=== PATIENT | male | born 1980 | race Caucasian/White ===

== ENCOUNTER 2018-02-03 16:35 | Emergency (ER) | payer SELFPAY ==
[2018-02-03 17:41] LABS: BACTERIA, URINE RARE /hpf; BILIRUBIN, URINE NEG (NEG); BLOOD, URINE LARGE (NEG); CALCIUM OXALATE CRYSTALS,URINE FEW /hpf; COMMENT (UR) CULT NOT INDICATED; CULTURE IF INDICATED CULT NOT INDICATED; GLUCOSE,URINE NEG (NEG); KETONE, URINE NEG (NEG); MUCUS URINE MANY /lpf (OCC); NITRITE,URINE NEG (NEG); PH, URINE 5.5 (5.0-8.5); URINE COLOR YELLOW (YELLW/STRAW); URINE LEUKOCYTE ESTERASE TRACE (NEG)
[2018-02-03] MEDS ORDERED: SODIUM CHLORIDE 0.9% FLUSH 10 ML FLUSH IVF (18:45)
[2018-02-03] MEDS: ONDANSETRON HCL 4 MG/2 ML VIAL IV PUSH (19:04)
[2018-02-03] MEDS: SODIUM CHLOR 0.9% 1000 ML INJ 1,000 ML IV (19:04)
[2018-02-03] MEDS: MORPHINE SULFATE 4 MG/ML INJ IV PUSH (19:05)
[2018-02-03] MEDS: KETOROLAC TROMETHAMINE 30 MG/ML (IVP) VIAL IV PUSH (19:06)
[2018-02-03 19:35] LABS: AUTOMATED NEUTROPHIL # 8.8 TH/MM3 (1.8-7.7); BASOPHIL % 0.2 % (0.0-2.0); EOSINOPHIL # 0.3 TH/MM3 (0-0.4); EOSINOPHIL % 2.1 % (0.0-4.0); HEMATOCRIT 46.9 % (39.0-51.0); HEMO FLAGS DIFF FINAL; HEMOGLOBIN 16.2 GM/DL (13.0-17.0); LYMPH % 17.5 % (9.0-44.0); LYMPHOCYTE # 2.1 TH/MM3 (1.0-4.8); MEAN CELL VOLUME 88.2 FL (80.0-100.0); MEAN CORPUSCULAR HEMOGLOBIN 30.5 PG (27.0-34.0); MEAN CORPUSCULAR HGB CONC 34.6 % (32.0-36.0); MEAN PLATELET VOLUME 8.1 FL (7.0-11.0); MONOCYTE # 0.7 TH/MM3 (0-0.9); NEUT % 74.2 % (16.0-70.0); PLATELET COUNT 305 TH/MM3 (150-450); RED BLOOD COUNT 5.31 MIL/MM3 (4.50-5.90); RED CELL DISTRIBUTION WIDTH 12.2 % (11.6-17.2); WHITE BLOOD COUNT 11.9 TH/MM3 (4.0-11.0)
[2018-02-03 19:46] LABS: ANION GAP 8 MEQ/L (5-15); BICARBONATE 24.9 MEQ/L (21.0-32.0); BLOOD UREA NITROGEN 8 MG/DL (7-18); CALCIUM 9.4 MG/DL (8.5-10.1); CHLORIDE 102 MEQ/L (98-107); CREATININE 0.95 MG/DL (0.60-1.30); GLOMERULAR FILTRATION RATE 89 ML/MIN (>89); GLUCOSE,RANDOM 82 MG/DL (74-106); POTASSIUM 3.9 MEQ/L (3.5-5.1); SODIUM (NA) 135 MEQ/L (136-145)
== END 2018-02-03 20:25 | disposition home or self-care (01) ==
LOC: NEPD 16:35
DX: N13.2 Hydronephrosis with renal and ureteral calculous obstruction (principal)
CPT/HCPCS: 74176; 80048; 81001; 85025; 96374; 96375; 99284-25

== ENCOUNTER 2018-02-04 08:53 | Observation (INO) | payer SELFPAY ==
[~2018-02-04 08:53] MED LIST: AMLO5TAB2 PO; HYDR-3580 PO; LEXA10TA PO; LISI20TA PO; META1TAB17 PO; ZOFR4TAB3 SL
[2018-02-04 08:55] VITALS: BP 184/98; PULSE 89; RESP 20; TEMP 98.2; O2SAT 98
[2018-02-04] MEDS ORDERED: SODIUM CHLOR 0.9% 1000 ML INJ 1,000 ML IV SCH (09:18)
[2018-02-04 09:23] VITALS: O2SAT 99
--- NOTE | 2018-02-04 09:26 | PD ---
HPI Chief Complaint: Complaint Time Seen by Provider: 09:08 Travel History International Travel<30 days: No Contact w/Intl Traveler<30days: No Traveled to known affect area: No History of Present Illness HPI Patient is a 37-year-old male with history of hypertension who returns the emergency room for evaluation of intractable right-sided flank pain with nausea and vomiting. Patient reports that he was seen yesterday in the emergency room for right-sided flank pain. Patient reports that he was told that he had a 5 mm stone in the right distal ureter with mild hydronephrosis and hydroureter with perinephric stranding. Patient reports that he was sent home with a prescription for hydrocodone, reports that after he was discharged home, he began to feel nauseous and had multiple episodes of vomiting. Patient reports that he is unable to keep any fluids or any food or medications at this time, he is unable to take his medications for pain. Patient reports that he was told to return to the emergency room if symptoms persisted. Patient reports that he has severe pain to his right flank, reports that he has history of kidney stones in the past, reports that at baseline, he normally passes the stones by himself. Patient reports that he has passed up to a 6.5 mm kidney stone without urologic intervention. Reports that he does make calcium oxalate stones, he last saw a urologist about 45 years ago. Patient reports that he has not had a kidney stone for the past 4-5 years as he has been diet controlled. Patient denies any fevers or chills at this time. PFSH Past Medical History Anxiety: Yes Depression: Yes Hypertension: Yes Kidney Stones: Yes Tetanus Vaccination: < 5 Years Past Surgical History Tonsillectomy: Yes (AND ADENOIDS) Other Surgery: Yes (VASECTOMY) Social History Alcohol Use: No Tobacco Use: No Substance Use: No Allergies-Medications (Allergen,Severity, Reaction): Coded Allergies: No Known Allergies (Verified Adverse Reaction, Unknown, 02/03/18) Reported Meds & Prescriptions Reported Meds & Active Scripts Active Zofran Odt (Ondansetron Odt) 4 Mg Tab 4 Mg SL Q6HR PRN Hydrocodone-Acetaminophen 7.5 Mg-325 Mg Tab 1 Tab PO Q6H PRN Reported Lexapro (Escitalopram Oxalate) 10 Mg Tab 10 Mg PO DAILY Metaxalone 400 Mg Tab 100 Mg PO TID Lisinopril-Hctz 20-12.5 Mg Tab 1 Tab PO DAILY Amlodipine (Amlodipine Besylate) 5 Mg Tab 5 Mg PO DAILY Review of Systems General / Constitutional: No: Fever Eyes: No: Visual changes HENT: No: Headaches Cardiovascular: No: Chest Pain or Discomfort Respiratory: No: Shortness of Breath Gastrointestinal: Positive: Nausea, Vomiting, Abdominal Pain Genitourinary: Positive: Urgency, Frequency, Hematuria, Flank Pain, No: Dysuria Musculoskeletal: No: Pain Skin: No Rash Neurologic: No: Weakness Psychiatric: No: Depression Endocrine: No: Polydipsia Hematologic/Lymphatic: No: Easy Bruising Physical Exam Narrative GENERAL: Moderate distress SKIN: Focused skin assessment warm/dry. HEAD: Atraumatic. Normocephalic. EYES: Pupils equal and round. No scleral icterus. No injection or drainage. ENT: No nasal bleeding or discharge. Mucous membranes pink and moist. NECK: Trachea midline. No JVD. CARDIOVASCULAR: Regular rate and rhythm. No murmur appreciated. RESPIRATORY: No accessory muscle use. Clear to auscultation. Breath sounds equal bilaterally. GASTROINTESTINAL: Abdomen soft, non-tender, nondistended. Hepatic and splenic margins not palpable. MUSCULOSKELETAL: No obvious deformities. No clubbing. No cyanosis. No edema. Patient with right-sided flank pain NEUROLOGICAL: Awake and alert. No obvious cranial nerve deficits. Motor grossly within normal limits. Normal speech. PSYCHIATRIC: Appropriate mood and affect; insight and judgment normal. Data Data Last Documented VS Vital Signs Date Time Temp Pulse Resp B/P (MAP) Pulse Ox O2 Delivery O2 Flow Rate FiO2 02/04/18 11:00 18 02/04/18 09:23 99 02/04/18 08:55 98.2 89 184/98 (126) Orders Orders Complete Blood Count With Diff (02/04/18 09:18) Comprehensive Metabolic Panel (02/04/18 09:18) Urinalysis - C+S If Indicated (02/04/18 09:18) Iv Access Insert/Monitor (02/04/18 09:18) Ecg Monitoring (02/04/18 09:18) Oximetry (02/04/18 09:18) Morphine Inj (Morphine Inj) (02/04/18 09:30) Ondansetron Inj (Zofran Inj) (02/04/18 09:30) Sodium Chlor 0.9% 1000 Ml Inj (Ns 1000 M (02/04/18 09:18) Sodium Chloride 0.9% Flush (Ns Flush) (02/04/18 09:30) Strain Urine PRN (02/04/18 11:07) Ketorolac Inj (Toradol Inj) (02/04/18 11:15) Admit Order (Ed Use Only) (02/04/18 11:17) Labs Laboratory Tests Test 02/04/18 09:30 White Blood Count 8.5 TH/MM3 Red Blood Count 5.19 MIL/MM3 Hemoglobin 16.2 GM/DL Hematocrit 45.9 % Mean Corpuscular Volume 88.4 FL Mean Corpuscular Hemoglobin 31.2 PG Mean Corpuscular Hemoglobin Concent 35.3 % Red Cell Distribution Width 12.4 % Platelet Count 287 TH/MM3 Mean Platelet Volume 8.1 FL Neutrophils (%) (Auto) 63.7 % Lymphocytes (%) (Auto) 25.5 % Monocytes (%) (Auto) 6.3 % Eosinophils (%) (Auto) 4.2 % Basophils (%) (Auto) 0.3 % Neutrophils # (Auto) 5.4 TH/MM3 Lymphocytes # (Auto) 2.2 TH/MM3 Monocytes # (Auto) 0.5 TH/MM3 Eosinophils # (Auto) 0.4 TH/MM3 Basophils # (Auto) 0.0 TH/MM3 CBC Comment DIFF FINAL Differential Comment Blood Urea Nitrogen 11 MG/DL Creatinine 1.32 MG/DL Random Glucose 117 MG/DL Total Protein 7.8 GM/DL Albumin 4.2 GM/DL Calcium Level 9.2 MG/DL Alkaline Phosphatase 85 U/L Aspartate Amino Transf (AST/SGOT) 44 U/L Alanine Aminotransferase (ALT/SGPT) 134 U/L Total Bilirubin 0.4 MG/DL Sodium Level 138 MEQ/L Potassium Level 4.0 MEQ/L Chloride Level 103 MEQ/L Carbon Dioxide Level 25.2 MEQ/L Anion Gap 10 MEQ/L Estimat Glomerular Filtration Rate 61 ML/MIN MDM Medical Decision Making Medical Screen Exam Complete: Yes Emergency Medical Condition: Yes Medical Record Reviewed: Yes Interpretation(s) Vital Signs Date Time Temp Pulse Resp B/P (MAP) Pulse Ox O2 Delivery O2 Flow Rate FiO2 02/04/18 08:55 98.2 89 20 184/98 (126) 98 Differential Diagnosis Kidney stone, hydronephrosis, renal failure, UTI Narrative Course During the course of the patients emergency department visit, the patients history, examination, and differential diagnosis were reviewed with the patient. The patient was placed on a metal neutralizer with oximetry and frequent blood pressure monitoring. The patient had an IV access obtained and blood work sent for analysis. The patient was initially provided IV fluids, IV Zofran as well as IV morphine for pain The patients laboratory studies were reviewed and remarkable for CBC & BMP Diagram 02/04/18 09:30 Total Protein 7.8, Albumin 4.2, Calcium Level 9.2, Alkaline Phosphatase 85, Aspartate Amino Transf (AST/SGOT) 44 H, Alanine Aminotransferase (ALT/SGPT) 134 H, Total Bilirubin 0.4 Patient's creatinine 1.32 which is elevated from last visit, during last visit, BUN creatinine was 8/0.[address] the abdomen pelvis from yesterday showed a 5 mm stone in the distal right ureter with mild hydronephrosis and hydroureter and to the right perinephric stranding. Patient presents the emergency room for pain relief and hydration and admission to the hospital. Patient unable to tolerate anything p.o., patient will require admission to the hospital at this time for IV hydration as well as for pain relief. Patient reevaluated, patient is not feeling any better. IV Toradol ordered. Given his elevated creatinine at this time, intractable pain, intractable nausea and vomiting, patient will require admission to the hospital. Patient will be admitted to the hospital under Dr. Mccord service as case is reviewed with FP resident. Diagnosis Primary Impression: Kidney stone on right side Additional Impression: Hydroureter on right Admitting Information Admitting Physician Requests: Argenis Malone DO February 04, 2018 09:26
[2018-02-04] MEDS ORDERED: MORPHINE SULFATE 4 MG/ML INJ IV PUSH ONE (09:30)
[2018-02-04] MEDS ORDERED: SODIUM CHLORIDE 0.9% FLUSH 10 ML FLUSH IV FLUSH PRN ×2 (09:30→12:00)
[2018-02-04] MEDS ORDERED: ONDANSETRON HCL 4 MG/2 ML VIAL IVP ONE (09:30)
[2018-02-04 09:47] LABS: AUTOMATED NEUTROPHIL # 5.4 TH/MM3 (1.8-7.7); BASOPHIL % 0.3 % (0.0-2.0); EOSINOPHIL # 0.4 TH/MM3 (0-0.4); EOSINOPHIL % 4.2 % (0.0-4.0); HEMATOCRIT 45.9 % (39.0-51.0); HEMOGLOBIN 16.2 GM/DL (13.0-17.0); LYMPH % 25.5 % (9.0-44.0); LYMPHOCYTE # 2.2 TH/MM3 (1.0-4.8); MEAN CELL VOLUME 88.4 FL (80.0-100.0); MEAN CORPUSCULAR HEMOGLOBIN 31.2 PG (27.0-34.0); MEAN CORPUSCULAR HGB CONC 35.3 % (32.0-36.0); MEAN PLATELET VOLUME 8.1 FL (7.0-11.0); MONO % 6.3 % (0.0-8.0); MONOCYTE # 0.5 TH/MM3 (0-0.9); NEUT % 63.7 % (16.0-70.0); PLATELET COUNT 287 TH/MM3 (150-450); RED BLOOD COUNT 5.19 MIL/MM3 (4.50-5.90); RED CELL DISTRIBUTION WIDTH 12.4 % (11.6-17.2); WHITE BLOOD COUNT 8.5 TH/MM3 (4.0-11.0)
[2018-02-04 09:58] LABS: ALBUMIN 4.2 GM/DL (3.4-5.0); AST (GOT) 44 U/L (15-37); BICARBONATE 25.2 MEQ/L (21.0-32.0); BLOOD UREA NITROGEN 11 MG/DL (7-18); CALCIUM 9.2 MG/DL (8.5-10.1); CHLORIDE 103 MEQ/L (98-107); CREATININE 1.32 MG/DL (0.60-1.30); GLOMERULAR FILTRATION RATE 61 ML/MIN (>89); GLUCOSE,RANDOM 117 MG/DL (74-106); SODIUM (NA) 138 MEQ/L (136-145)
[2018-02-04 09:59] LABS: ALT (GPT) 134 U/L (12-78)
[2018-02-04 10:01] LABS: ALKALINE PHOSPHATASE 85 U/L (45-117); TOTAL BILIRUBIN ADULT 0.4 MG/DL (0.2-1.0); TOTAL PROTEIN 7.8 GM/DL (6.4-8.2)
[2018-02-04] MEDS ORDERED: KETOROLAC TROMETHAMINE 30 MG/ML (IVP) VIAL IVP ONE (11:15)
--- NOTE | 2018-02-04 11:20 | HHI.HP ---
HPI Service Family Medicine Primary Care Physician Unknown Admission Diagnosis Diagnoses: International Travel<30 Days: No Contact w/Intl Traveler<30days: No Known Affected Area: No History of Present Illness Patient is a 37-year-old male with past medical history of hypertension and kidney stones returning to ED due to worsening right-sided flank pain and malaise associated with kidney stones that was diagnosed yesterday on CT imaging in the ED. Patient reports that he was discharged on Zofran and hydrocodone yesterday and advised to return if the sxs worsen. He reports that today the pain was more severe associated with nausea and blurred to tolerate p.o. intake. Patient rates pain 10 out of 10 and describes as a "tearing" sensation. The pain radiated to his Right groin. This morning he also noticed hematuria with about 5-6 blood clots and scrotal swelling, redness and tenderness. Patient has a history of kidney stones, largest stone has been 6 mm. In the past he has not required any surgical intervention for the kidney and is usually able to pass them. He used to follow with urologist Dr. Blakely for his recurrent kidney stones but has not seen him in a while because due to diet modification the occurrence decreased. pcp: Dr. Pete (Eugenio Han MD, R1) Review of Systems Constitutional: COMPLAINS OF: Diaphoretic episodes, Chills, Night Sweats, DENIES: Fever, Dizziness Eyes: DENIES: Blurred vision, Vision loss Ears, nose, mouth, throat: COMPLAINS OF: Throat pain (dry), DENIES: Running Nose Respiratory: COMPLAINS OF: Shortness of breath, DENIES: Cough, Wheezing Cardiovascular: DENIES: Chest pain, Palpitations, Lower Extremity Edema Gastrointestinal: COMPLAINS OF: Nausea, Vomiting, DENIES: Abdominal pain, Bloody stools Genitourinary: COMPLAINS OF: Hematuria Musculoskeletal: COMPLAINS OF: Back pain Integumentary: DENIES: Rash Hematologic/lymphatic: DENIES: Bruising Neurologic: COMPLAINS OF: Paresthesias (BL in hands, chronic due to work injury a yr ago), DENIES: Headache (Eugenio Han MD, R1) Past Family Social History Past Medical History HTN kidney stones anxiety Past Surgical History vasectomy tonsillectomy nerve ablation, 4 months Reported Medications Reported Meds & Active Scripts Active Zofran Odt (Ondansetron Odt) 4 Mg Tab 4 Mg SL Q6HR PRN Hydrocodone-Acetaminophen 7.5 Mg-325 Mg Tab 1 Tab PO Q6H PRN Reported Lexapro (Escitalopram Oxalate) 10 Mg Tab 10 Mg PO DAILY Metaxalone 400 Mg Tab 100 Mg PO TID Lisinopril-Hctz 20-12.5 Mg Tab 1 Tab PO DAILY Amlodipine (Amlodipine Besylate) 5 Mg Tab 5 Mg PO DAILY (Eugenio Han MD, R1) Allergies: Coded Allergies: No Known Allergies (Verified Allergy, Unknown, 02/04/18) Family History kidney stone- father, uncle, grandfather grandfather- DM Social History condo with gf smoking quit 10 yr, prior 1 pack per day x 15yrs alcohol rarely illicit denies drug (Eugenio Han MD, R1) Physical Exam Vital Signs Vital Signs Date Time Temp Pulse Resp B/P (MAP) Pulse Ox O2 Delivery O2 Flow Rate FiO2 02/04/18 11:00 18 02/04/18 09:23 99 02/04/18 08:55 98.2 89 20 184/98 (126 98 Physical Exam GENERAL: This is a well-nourished, well-developed patient, in no apparent distress. SKIN: No rashes, ecchymoses or lesions. Cool and dry. HEAD: Atraumatic. Normocephalic. EYES: Pupils equal round and reactive. Extraocular motions intact. No scleral icterus. No injection or drainage. ENT: Nose without bleeding, purulent drainage or septal hematoma. Throat without erythema, tonsillar hypertrophy or exudate. Uvula midline. Airway patent. NECK: Trachea midline. No JVD or lymphadenopathy. Supple, nontender, no meningeal signs. CARDIOVASCULAR: Regular rate and rhythm without murmurs, gallops, or rubs. RESPIRATORY: Clear to auscultation. Breath sounds equal bilaterally. No wheezes , rales, or rhonchi. Right CVA tenderness. GASTROINTESTINAL: obese abdomen, soft, tender to palpation on mid lower quadrant. No hepato-splenomegaly, or palpable masses. No guarding. : scrotal tenderness and erythema. mild scrotal swelling. MUSCULOSKELETAL: Extremities without clubbing, cyanosis, or edema. No joint tenderness, effusion, or edema noted. No calf tenderness. +2 DP pulses BL. NEUROLOGICAL: Awake and alert. Cranial nerves II through XII intact. Motor and sensory grossly within normal limits. Five out of 5 muscle strength in all muscle groups. Normal speech. Laboratory Laboratory Tests Test 02/04/18 09:30 White Blood Count 8.5 Red Blood Count 5.19 Hemoglobin 16.2 Hematocrit 45.9 Mean Corpuscular Volume 88.4 Mean Corpuscular Hemoglobin 31.2 Mean Corpuscular Hemoglobin Concent 35.3 Red Cell Distribution Width 12.4 Platelet Count 287 Mean Platelet Volume 8.1 Neutrophils (%) (Auto) 63.7 Lymphocytes (%) (Auto) 25.5 Monocytes (%) (Auto) 6.3 Eosinophils (%) (Auto) 4.2 Basophils (%) (Auto) 0.3 Neutrophils # (Auto) 5.4 Lymphocytes # (Auto) 2.2 Monocytes # (Auto) 0.5 Eosinophils # (Auto) 0.4 Basophils # (Auto) 0.0 CBC Comment DIFF FINAL Differential Comment Blood Urea Nitrogen 11 Creatinine 1.32 Random Glucose 117 Total Protein 7.8 Albumin 4.2 Calcium Level 9.2 Alkaline Phosphatase 85 Aspartate Amino Transf (AST/SGOT) 44 Alanine Aminotransferase (ALT/SGPT) 134 Total Bilirubin 0.4 Sodium Level 138 Potassium Level 4.0 Chloride Level 103 Carbon Dioxide Level 25.2 Anion Gap 10 Estimat Glomerular Filtration Rate 61 (Eugenio Han MD, R1) Result Diagram: 02/04/18 0930 02/04/18 0930 Imaging Scrotum Ultrasound 02/04/18 0000 Signed Impressions: Service Date/Time: Sunday, February 04, 2018 12:57 - CONCLUSION: Normal examination. Manuel Fernandes MD (Eugenio Han MD, R1) Caprini VTE Risk Assessment Caprini VTE Risk Assessment: Mod/High Risk (score >= 2) Caprini Risk Assessment Model Point Value = 1 Point Value = 2 Point Value = 3 Point Value = 5 Age 41-60 Minor surgery BMI > 25 kg/m2 Swollen legs Varicose veins or History of unexplained or recurrent spontaneous Oral contraceptives or hormone replacement Sepsis (< 1 month) Serious lung disease, including pneumonia (< 1 month) Abnormal pulmonary function Acute myocardial infarction Congestive heart failure (< 1 month) History of inflammatory bowel disease Medical patient at bed rest Age 61-74 Arthroscopic surgery Major open surgery (> 45 min) Laparoscopic surgery (> 45 min) Malignancy Confined to bed (> 72 hours) Immobilizing plaster cast Central venous access Age >= 75 History of VTE Family history of VTE Factor V Leiden Prothrombin [id number] Lupus anticoagulant Anticardiolipin antibodies Elevated serum homocysteine Heparin-induced thrombocytopenia Other congenital or acquired thrombophilia Stroke (< 1 month) Elective arthroplasty Hip, pelvis, or leg fracture Acute spinal cord injury (< 1 month) Prophylaxis Regimen Total Risk Factor Score Risk Level Prophylaxis Regimen 0-1 Low Early ambulation 2 Moderate Order ONE of the following: *Sequential Compression Device (SCD) *Heparin 5000 units SQ BID 3-4 Higher Order ONE of the following medications: *Heparin 5000 units SQ TID *Enoxaparin/Lovenox 40 mg SQ daily (WT < 150 kg, CrCl > 30 mL/min) *Enoxaparin/Lovenox 30 mg SQ daily (WT < 150 kg, CrCl > 10-29 mL/min) *Enoxaparin/Lovenox 30 mg SQ BID (WT < 150 kg, CrCl > 30 mL/min) AND/OR *Sequential Compression Device (SCD) 5 or more Highest Order ONE of the following medications: *Heparin 5000 units SQ TID (Preferred with Epidurals) *Enoxaparin/Lovenox 40 mg SQ daily (WT < 150 kg, CrCl > 30 mL/min) *Enoxaparin/Lovenox 30 mg SQ daily (WT < 150 kg, CrCl > 10-29 mL/min) *Enoxaparin/Lovenox 30 mg SQ BID (WT < 150 kg, CrCl > 30 mL/min) AND *Sequential Compression Device (SCD) (Eugenio Han MD, R1) Assessment and Plan Assessment and Plan Patient is a 37-year-old male with past medical history of hypertension and kidney stones presenting with: Code Status Full code Discussed Condition With Seen and discussed with Dr. Richmond and (Eugenio Han MD, R1) Attending Attestation THIS CASE WAS DISCUSSED WITH THE RESIDENT PHYSICIAN AND PATIENT WAS SEEN WITH THE RESIDENTS. I HAVE REVIEWED THE RECORD AND AGREE WITH THE ABOVE NOTE AND PLAN OF CARE WAS DISCUSSED. I ATTEST THE ABOVE EXAM REFLECTS MY EXAM OF THE PATIENT. I HAVE AUTHORIZED THE ORDER FOR PLACEMENT IN OUT-PATIENT OBSERVATION STATUS. (Lanette Richmond MD) Problem List: (1) Kidney stone on right side ICD Codes: N20.0 - Calculus of kidney Status: Acute Plan: Patient with 2 day history of right flank pain, pain is worse today associated with nausea, decreased p.o. intake, hematuria and scrotal tenderness. Patient afebrile, no leukocytosis UA: Moderate occult blood CT abdomen pelvis on 02/03: 5 mm stone distal right ureter ureter with mild hydronephrosis and hydroureter and right perinephric stranding. 3 nonobstructing left renal stones. Scrotal ultrasound: Normal IVF at 180mls/hr Flomax 1 today, continue with Flomax twice daily tomorrow Pain control: Toradol per pain scale Morphine for breakthrough pain Urology consulted, appreciate recommendations Continue IV fluids Strain all urine Plan for cystoscopy and right ureteroscopy and laser lithotripsy tomorrow morning if pt unable to pass stones. (2) Hypertension ICD Codes: I10 - Essential (primary) hypertension Status: Chronic Plan: Patient found to have elevated blood pressures in the ED. patient had not taken blood pressure medications today. home medication resumed C/w home medications Continue to monitor vital signs (3) TRACEY (acute kidney injury) ICD Codes: N17.9 - Acute kidney failure, unspecified Status: Acute Plan: Patient with increased creatinine of 1.32 secondary to kidney stone IV fluids Continue to monitor (4) Anxiety ICD Codes: F41.9 - Anxiety disorder, unspecified Status: Chronic Plan: Stable mood Continue with home medication (5) Nutrition, metabolism, and development symptoms ICD Codes: R63.8 - Other symptoms and signs concerning food and fluid intake Plan: Fluids: 180 mL/HR Electrolytes: Replete as needed, continue to monitor Nutrition: Regular diet DVT prophylaxis: SCDs (Eugenio Han MD, R1) Eugenio Han MD, R1 February 04, 2018 11:19 Lanette Richmond MD February 05, 2018 11:58
[2018-02-04 11:38] LABS: BILIRUBIN, URINE NEG (NEG); BLOOD, URINE MOD (NEG); GLUCOSE,URINE NEG (NEG); KETONE, URINE NEG (NEG); MUCUS URINE FEW /lpf (OCC); NITRITE,URINE NEG (NEG); URINE COLOR LIGHT-YELLOW (YELLW/STRAW); URINE LEUKOCYTE ESTERASE NEG (NEG)
[2018-02-04] MEDS ORDERED: MORPHINE SULFATE 2 MG/ML SYRINGE IV PUSH PRN (12:00)
[2018-02-04] MEDS ORDERED: NALOXONE HCL 0.4 MG/ML AMP IV PUSH PRN ×2 (12:00)
[2018-02-04] MEDS: SODIUM CHLORIDE 0.9% FLUSH 10 ML FLUSH IV FLUSH SCH ×2 (12:00→20:15)
[2018-02-04] MEDS ORDERED: ACETAMINOPHEN 325 MG TAB PO PRN (12:00)
[2018-02-04] MEDS ORDERED: SENNOSIDES 8.6 MG TAB PO PRN (12:00)
[2018-02-04] MEDS ORDERED: KETOROLAC TROMETHAMINE 30 MG/ML (IVP) VIAL IV PUSH PRN ×2 (12:00)
[2018-02-04] MEDS ORDERED: ONDANSETRON HCL 4 MG/2 ML VIAL IVP PRN (12:00)
[2018-02-04] MEDS ORDERED: MAGNESIUM HYDROXIDE SUSP 30 ML CUP PO PRN (12:00)
[2018-02-04] MEDS ORDERED: NON-FORMULARY DRUG (Lisinopril-Hctz 1 TAB) PO SCH (12:00)
[2018-02-04] MEDS ORDERED: BISACODYL 10 MG SUPP RECTAL PRN (12:00)
[2018-02-04] MEDS ORDERED: LACTULOSE SYRUP 20 GM/30 ML CUP PO PRN (12:00)
[2018-02-04] MEDS ORDERED: TAMSULOSIN HCL 0.4 MG CAP PO ONE (12:30)
[2018-02-04] MEDS: SODIUM CHLOR 0.9% 1000 ML INJ 1,000 ML IV SCH ×3 (12:34→23:27)
[2018-02-04 13:43] VITALS: BP 154/90; PULSE 81; RESP 18; O2SAT 97
--- NOTE | 2018-02-04 14:08 | RADRPT ---
EXAM DATE/TIME: 02/04/2018 12:57 [facility] COMPARISON: No previous studies available for comparison. INDICATIONS : Testicular pain with kidney stones. MEDICAL HISTORY : Hypertension. Renal calculi. Dyspnea. Hematuria. Paresthesia. Depression. Anxiety. SURGICAL HISTORY : Tonsillectomy. Adenoidectomy. L4-L5 nerve ablation. Vasectomy. ENCOUNTER: Initial ACUITY: 4 - 6 days PAIN SCORE: 3/10 LOCATION: Bilateral scrotum. MEASUREMENTS: RIGHT TESTICLE: 4.7 x 3.4 x 2.6 cm LEFT TESTICLE: 4.3 x 3.5 x 2.4cm FINDINGS: RIGHT TESTICLE: Homogeneous echotexture without intra or extratesticular mass. Blood flow is symmetric and within no rmal limits. No hydrocele or varicocele. Epididymis is within normal limits. LEFT TESTICLE: Homogeneous echotexture without intra or extratesticular mass. Blood flow is symmetric and within no rmal limits. No hydrocele or varicocele. Epididymis is within normal limits. SCROTUM: Within normal limits. CONCLUSION: Normal examination. Manuel Fernandes MD on February 04, 2018 at 14:04 Board Certified Radiologist. This report was verified electronically.
[2018-02-04 14:30] VITALS: BP 150/108; PULSE 60; RESP 16; TEMP 97.9; O2SAT 96
[2018-02-04] MEDS: amLODIPine BESYLATE 5 MG TAB PO SCH (14:53)
[2018-02-04] MEDS: LISINOPRIL 20 MG TAB PO SCH (14:53)
[2018-02-04] MEDS: HYDROCHLOROTHIAZIDE 25 MG TAB PO SCH (14:53)
[2018-02-04] MEDS: ESCITALOPRAM OXALATE 10 MG TAB PO SCH (14:53)
--- NOTE | 2018-02-04 15:47 | MB ---
cc: Froylan Ontiveros DO DATE: 02/04/2018 HISTORY OF PRESENT ILLNESS: Mr. Chacko is a pleasant 37-year-old male who presented with right-sided flank pain. He was seen in the emergency room the day before and this has been persistent. He has had nausea and vomiting associated with this one. He has had multiple stones in the past which he has passed on his own. He has not required surgical intervention for stone treatment in the past. He denies any fever or chills at this time. MEDICAL HISTORY: Noted for anxiety and depression, hypertension, nephrolithiasis. PAST SURGICAL HISTORY: Noted for a tonsillectomy and vasectomy. SOCIAL HISTORY: Negative. FAMILY HISTORY: Noncontributory. ALLERGIES: NO KNOWN DRUG ALLERGIES. MEDICATIONS: Please refer to the chart. REVIEW OF SYSTEMS: Denies fever, chills, visual changes, headaches or chest pain. Denies shortness of breath. He does note nausea, vomiting and abdominal pain with some urgency and frequency and blood in his urine. He denies any rashes, neuropathies or easy bruising. The remaining review of systems were reviewed and were negative. PHYSICAL EXAMINATION: VITAL SIGNS: Temperature is 97.9, heart rate 60, respiratory rate 16, 150/108 is his blood pressure. GENERAL: He is a well-developed, well-nourished, 37-year-old male in no acute distress. HEENT: Normocephalic, atraumatic. Pupils equal, round, regular, reactive to light. Extraocular movements intact. NECK: Supple. HEART: Regular rate and rhythm. LUNGS: Clear. ABDOMEN: Soft, nontender. There is mild right CVA tenderness noted. EXTREMITIES: Normal. Extremities show no cyanosis, clubbing, or edema. EXAM: Noted. NEUROLOGIC: Cranial nerves 2-12 are intact. LABORATORY DATA: White count 8.5, hemoglobin 16.2, hematocrit 45.9, platelet count of 287. Sodium 138, potassium 4.0, chloride 103, CO2 25.2, BUN 11, creatinine 1.3, glucose of 117. Urinalysis shows occult blood, moderate, numerous red cells. IMAGING STUDIES: CT scan from 02/03/2018 shows a 5 mm stone at the distal right ureter with mild hydro-ureteral nephrosis with right perinephric stranding, small nonobstructing left renal stones ASSESSMENT: A 37-year-old male with a distal 5 mm stone causing obstruction. RECOMMENDATIONS: Continue IV fluids. Strain all urine. If unable to pass stone, we will schedule for cystoscopy and right ureteroscopy and laser lithotripsy in the a.m. Thank you for the consult and allowing me to participate in the care of this patient. DO NANCI Reyes/KUMAR , 03:21 PM , 03:46 PM
[2018-02-04 16:15] VITALS: BP 143/87; PULSE 78; RESP 18; O2SAT 96
[2018-02-04] MEDS ORDERED: MORPHINE SULFATE 4 MG/ML INJ IV PUSH PRN (16:30)
[2018-02-04] MEDS: KETOROLAC TROMETHAMINE 30 MG/ML (IVP) VIAL IV PUSH SCH ×2 (17:46→23:27)
[2018-02-04 20:07] VITALS: BP 109/66; PULSE 80; RESP 18; TEMP 98.4; O2SAT 95
[2018-02-04] MEDS: DOCUSATE SODIUM 50 MG/SENNA 8.6 MG TAB PO SCH (20:15)
[2018-02-05] VITALS (7 sets, daily range): BP systolic 95–134; BP diastolic 55–92; PULSE 70–89; RESP 18–21; TEMP 97.6–98.7; O2SAT 94–96
[2018-02-05] MEDS: KETOROLAC TROMETHAMINE 30 MG/ML (IVP) VIAL IV PUSH SCH ×3 (05:04→18:00)
[2018-02-05] MEDS: SODIUM CHLOR 0.9% 1000 ML INJ 1,000 ML IV SCH ×4 (05:04→21:40)
[2018-02-05 07:19] LABS: AUTOMATED NEUTROPHIL # 4.3 TH/MM3 (1.8-7.7); BASOPHIL % 0.1 % (0.0-2.0); EOSINOPHIL # 0.5 TH/MM3 (0-0.4); EOSINOPHIL % 6.1 % (0.0-4.0); HEMATOCRIT 39.9 % (39.0-51.0); HEMOGLOBIN 13.9 GM/DL (13.0-17.0); LYMPH % 30.2 % (9.0-44.0); LYMPHOCYTE # 2.3 TH/MM3 (1.0-4.8); MEAN CELL VOLUME 89.3 FL (80.0-100.0); MEAN CORPUSCULAR HGB CONC 34.8 % (32.0-36.0); MEAN PLATELET VOLUME 7.8 FL (7.0-11.0); MONO % 7.1 % (0.0-8.0); MONOCYTE # 0.5 TH/MM3 (0-0.9); NEUT % 56.5 % (16.0-70.0); PLATELET COUNT 225 TH/MM3 (150-450); RED BLOOD COUNT 4.47 MIL/MM3 (4.50-5.90); RED CELL DISTRIBUTION WIDTH 12.2 % (11.6-17.2); WHITE BLOOD COUNT 7.6 TH/MM3 (4.0-11.0)
[2018-02-05 07:46] LABS: ALBUMIN 3.4 GM/DL (3.4-5.0); ALKALINE PHOSPHATASE 66 U/L (45-117); ALT (GPT) 98 U/L (12-78); AST (GOT) 32 U/L (15-37); BICARBONATE 26.1 MEQ/L (21.0-32.0); BLOOD UREA NITROGEN 11 MG/DL (7-18); CALCIUM 8.4 MG/DL (8.5-10.1); CHLORIDE 106 MEQ/L (98-107); CREATININE 0.74 MG/DL (0.60-1.30); GLOMERULAR FILTRATION RATE 119 ML/MIN (>89); GLUCOSE,RANDOM 99 MG/DL (74-106); SODIUM (NA) 141 MEQ/L (136-145); TOTAL BILIRUBIN ADULT 0.5 MG/DL (0.2-1.0); TOTAL PROTEIN 6.6 GM/DL (6.4-8.2)
[2018-02-05] MEDS: amLODIPine BESYLATE 5 MG TAB PO SCH (09:12)
[2018-02-05] MEDS: TAMSULOSIN HCL 0.4 MG CAP PO SCH ×2 (09:12→21:40)
[2018-02-05] MEDS: LISINOPRIL 20 MG TAB PO SCH (09:12)
[2018-02-05] MEDS: HYDROCHLOROTHIAZIDE 25 MG TAB PO SCH (09:12)
[2018-02-05] MEDS: DOCUSATE SODIUM 50 MG/SENNA 8.6 MG TAB PO SCH ×2 (09:13→21:41)
[2018-02-05] MEDS: ESCITALOPRAM OXALATE 10 MG TAB PO SCH (09:13)
[2018-02-05] MEDS: SODIUM CHLORIDE 0.9% FLUSH 10 ML FLUSH IV FLUSH SCH ×2 (09:13→21:40)
[2018-02-05] MEDS ORDERED: FUROSEMIDE 40 MG/4 ML VIAL IV PUSH ONE (10:00)
[2018-02-05] MEDS ORDERED: PROPOFOL 200 MG/20 ML AMP IV ONE (11:47)
[2018-02-05] MEDS ORDERED: DEXAMETHASONE SOD PHOS 4 MG/ML VIAL IV ONE (11:47)
[2018-02-05] MEDS ORDERED: ROCURONIUM INJ 50 MG/5 ML SYRINGE IV PUSH ONE (11:47)
[2018-02-05] MEDS ORDERED: GLYCOPYRROLATE 1 MG/5 ML SYRINGE IV PUSH ONE (11:47)
[2018-02-05] MEDS ORDERED: ONDANSETRON HCL 4 MG/2 ML VIAL IV PUSH ONE (11:47)
[2018-02-05] MEDS ORDERED: LIDOCAINE HCL 1% PF 5 ML SYRINGE OTHER ONE (11:47)
[2018-02-05] MEDS ORDERED: KETOROLAC TROMETHAMINE 30 MG/ML (IVP) VIAL IV PUSH ONE (11:47)
[2018-02-05] MEDS ORDERED: LACTATED RINGER'S 1000 ML INJ 1,000 ML IV ONE (11:47)
[2018-02-05] MEDS ORDERED: PHENYLEPH/NS 1000 MCG/10 ML SYR IV ONE (11:47)
[2018-02-05] MEDS ORDERED: NEOSTIGMINE 5 MG/5 ML SYRINGE IV PUSH ONE (11:47)
[2018-02-05] MEDS ORDERED: ePHEDrine/NS 25 MG/5 ML SYRINGE IV ONE (11:47)
--- NOTE | 2018-02-05 12:20 | HHI.FPPN ---
Subjective Remarks Patient seen and examined at bedside. No acute events overnight. Patient reports that the pain is improved since yesterday. His scrotal pain and swelling has also improved. Denies any blood clots in his urine. (Eugenio Han MD, R1) Objective Vitals Vital Signs Date Time Temp Pulse Resp B/P (MAP) Pulse Ox O2 Delivery O2 Flow Rate FiO2 02/05/18 11:20 98.1 76 18 134/92 (106) 96 02/05/18 07:38 97.6 73 19 124/81 (95) 95 02/05/18 06:44 18 02/05/18 04:00 97.9 73 20 116/77 (90) 94 02/05/18 00:00 98.2 74 21 116/68 (84) 95 02/04/18 20:07 98.4 80 18 109/66 (80) 95 02/04/18 16:15 78 18 143/87 (105) 96 02/04/18 14:30 97.9 60 16 150/108 (122) 96 02/04/18 13:54 02/04/18 13:43 81 18 154/90 (111) 97 Room Air I/O 02/04/18 02/04/18 02/04/18 02/05/18 02/05/18 02/05/18 07:00 15:00 23:00 07:00 15:00 23:00 Intake Total 1000 ml 1000 ml 480 ml Balance 1000 ml 1000 ml 480 ml Intake Oral 480 ml IV Total 1000 ml 1000 ml # Voids 2 (Eugenio Han MD, R1) Result Diagram: 02/05/18 0645 02/05/18 0645 Imaging Last Impressions Scrotum Ultrasound 02/04/18 0000 Signed Impressions: Service Date/Time: Sunday, February 04, 2018 12:57 - CONCLUSION: Normal examination. Manuel Fernandes MD Objective Remarks GENERAL: This is a well-nourished, well-developed patient, in no apparent distress. SKIN: No rashes, ecchymoses or lesions. Cool and dry. HEAD: Atraumatic. Normocephalic. EYES: Pupils equal round and reactive. Extraocular motions intact. No scleral icterus. No injection or drainage. ENT: Nose without bleeding, purulent drainage or septal hematoma. Throat without erythema, tonsillar hypertrophy or exudate. Uvula midline. Airway patent. NECK: Trachea midline. No JVD or lymphadenopathy. Supple, nontender, no meningeal signs. CARDIOVASCULAR: Regular rate and rhythm without murmurs, gallops, or rubs. RESPIRATORY: Clear to auscultation. Breath sounds equal bilaterally. No wheezes , rales, or rhonchi. no CVA tenderness. GASTROINTESTINAL: obese abdomen, soft, tender to palpation on mid lower quadrant. No hepato-splenomegaly, or palpable masses. No guarding. MUSCULOSKELETAL: Extremities without clubbing, cyanosis, or edema. No joint tenderness, effusion, or edema noted. No calf tenderness. +2 DP pulses BL. NEUROLOGICAL: Awake and alert. Cranial nerves II through XII intact. Motor and sensory grossly within normal limits. Five out of 5 muscle strength in all muscle groups. Normal speech. (Eugenio Han MD, R1) A/P Assessment and Plan Patient is a 37-year-old male with past medical history of hypertension and kidney stones presenting with: Discharge Planning Pending urology clearance (Eugenio Han MD, R1) Attending Attestation Patient seen and examined. Case reviewed and discussed with the resident team. Agree with plan of care as discussed with me and documented in the resident note. (Lanette Richmond MD) Problem List: (1) Kidney stone on right side ICD Codes: N20.0 - Calculus of kidney Status: Acute Plan: Patient with 2 day history of right flank pain, pain is worse today associated with nausea, decreased p.o. intake, hematuria and scrotal tenderness. On admission patient afebrile, no leukocytosis UA: Moderate occult blood CT abdomen pelvis on 02/03: 5 mm stone distal right ureter ureter with mild hydronephrosis and hydroureter and right perinephric stranding. 3 nonobstructing left renal stones. Scrotal ultrasound: Normal Vital signs stable IVF at 180mls/hr continue with Flomax twice daily tomorrow Pain control: Toradol per pain scale Morphine for breakthrough pain Urology consulted, appreciate recommendations Continue IV fluids Strain all urine Plan for cystoscopy and right ureteroscopy and laser lithotripsy today if pt unable to pass stones. (2) Hypertension ICD Codes: I10 - Essential (primary) hypertension Status: Chronic Plan: On admission patient found to have elevated blood pressures in the ED. Blood pressure stable C/w home medications Continue to monitor vital signs (3) TRACEY (acute kidney injury) ICD Codes: N17.9 - Acute kidney failure, unspecified Status: Resolved Plan: On admission patient with increased creatinine of 1.32 secondary to kidney stone. Creatinine improved today to 0.74 IV fluids (4) Anxiety ICD Codes: F41.9 - Anxiety disorder, unspecified Status: Chronic Plan: Stable mood Continue with home medication (5) Nutrition, metabolism, and development symptoms ICD Codes: R63.8 - Other symptoms and signs concerning food and fluid intake Plan: Fluids: 180 mL/HR Electrolytes: Replete as needed, continue to monitor Nutrition: Regular diet DVT prophylaxis: SCDs (Eugenio Han MD, R1) Eugenio Han MD, R1 February 05, 2018 12:20 Lanette Richmond MD February 05, 2018 15:22
[2018-02-05] MEDS ORDERED: ceFAZolin 2 GM PREMIX 50 ML ONE (14:42)
[2018-02-05] MEDS ORDERED: ceFAZolin 2 GM/DEX PREMIX 50 ML IV SCH (15:15)
[2018-02-05] MEDS ORDERED: VASOPRESSIN 20 UNITS/ML VIAL ONE (15:53)
--- NOTE | 2018-02-05 16:22 | PD.OP ---
Operative Report Date of Surgery: February 05, 2018 Preoperative Diagnosis: Right distal ureteral calculus with hydronephrosis Postoperative Diagnosis: Same Procedure: Cystoscopy, right retrograde pyelogram, right ureteroscopy laser lithotripsy, stone extraction with right double-J stent insertion Anesthesia: SELWYN Surgeon: Froylan Ontiveros Hedge Trimmer(s): None Resident Surgeon: None Operation and Findings: 37-year-old male with a 6 mm distal right ureteral stone causing hydronephrosis and flank pain associated with nausea vomiting. Patient was admitted and received IV fluids for 24 hours and still had significant pain on the right side. Decision made to bring the patient to the operating room to undergo cystoscopy, right ureteroscopy with possible laser lithotripsy and stone extraction with possible stent insertion. Risk and benefits were discussed preoperatively and the patient was willing to proceed. Patient was brought to the operating room and identified by myself as Ke Chacko. He was placed in the dorsal lithotomy position, prepped and draped in sterile fashion, received preprocedure antibiotics and general endotracheal tube anesthesia was administered. The rigid ureteroscope was passed into the bladder and up into the right ureter. The stone was identified in the distal right ureter. A nitinol basket was used in attempt to extract the stone. This was unsuccessful. A 200 m laser fiber at a setting of 10 and 1000 was then utilized to fragment of the stone. The nitinol basket was then used to remove the stone. The stone was then sent to pathology. The ureteroscope was then passed back into the bladder and a right retrograde pyelogram was performed. No residual stones were identified. A 0.35 sensor wire was then passed through the ureteroscope and left with a good curl in the kidney. The scope was then removed. The 22 Yemeni cystoscope was then backloaded over the wire and then a 6 Yemeni 24 centimeter stent was then placed over the wire with a good curl in the kidney and the bladder. The bladder was then evacuated. He was awoken and extubated and transferred recovery in stable condition. He will follow-up in the office in the next 2-4 weeks to undergo cystoscopy with stent removal. He tolerated the procedure well. Froylan Ontiveros DO February 05, 2018 16:22
[2018-02-05] MEDS ORDERED: MIDAZOLAM HCL 2 MG/2 ML VIAL ONE (16:45)
[2018-02-05] MEDS ORDERED: DO NOT ADM ANY ANTICOAGULANT DRUGS PRN (17:30)
[2018-02-05] MEDS: PHENAZOPYRIDINE HCL 100 MG TAB PO SCH ×2 (18:09→21:40)
[2018-02-06] MEDS: KETOROLAC TROMETHAMINE 30 MG/ML (IVP) VIAL IV PUSH SCH ×2 (00:17→05:56)
[2018-02-06 03:55] VITALS: BP 100/51; PULSE 91; RESP 16; TEMP 97.8; O2SAT 95
[2018-02-06] MEDS: PHENAZOPYRIDINE HCL 100 MG TAB PO SCH (05:56)
[2018-02-06] MEDS: SODIUM CHLOR 0.9% 1000 ML INJ 1,000 ML IV SCH (05:57)
--- NOTE | 2018-02-06 08:03 | HHI.PR ---
Subjective Patient symptoms today Pt seen and examined. Feels better. Objective Vital Signs Vital Signs Date Time Temp Pulse Resp B/P (MAP) Pulse Ox O2 Delivery O2 Flow Rate FiO2 02/06/18 06:56 15 02/06/18 03:55 97.8 91 16 100/51 (67) 95 02/05/18 23:20 98.7 89 18 117/70 (86) 95 02/05/18 20:10 97.8 86 18 108/62 (77) 95 02/05/18 18:03 97.9 70 19 95/55 (68) 95 02/05/18 17:25 97.8 68 16 100/52 (68) 95 Nasal Cannula 3 02/05/18 17:15 67 16 98/54 (69) 94 Nasal Cannula 3 02/05/18 17:00 66 16 99/55 (70) 93 Nasal Cannula 3 02/05/18 16:45 65 16 108/67 (81) 95 Simple Mask 8 02/05/18 16:35 97.7 74 15 123/67 (85) 92 Simple Mask 8 02/05/18 11:20 98.1 76 18 134/92 (106) 96 Intake & Output 02/06/18 02/06/18 07:00 19:00 Output Total 1250 ml Balance -1250 ml Output Urine Total 1250 ml Result Diagram: 02/05/1845 02/05/18644 Objective Remarks Abd:soft,nt,nd Voiding well. Medications and IVs Current Medications Medications (Trade) Dose Ordered Sig/Stephanie Route Start Time Stop Time Status Last Admin Sodium Chloride 1,000 ml @ 180 mls/hr Q5H34M IV 02/04/18 12:00 02/06/18 05:57 (NS Flush) 2 ml UNSCH PRN IV FLUSH 02/04/18 12:00 02/04/18 17:47 (NS Flush) 2 ml BID IV FLUSH 02/04/18 12:00 (Tylenol) 650 mg Q4H PRN PO 02/04/18 12:00 (Zofran Inj) 4 mg Q6H PRN IVP 02/04/18 12:00 (Tere-Colace) 1 tab BID PO 02/04/18 21:00 02/05/18 09:13 (Milk Of Magnesia Liq) 30 ml Q12H PRN PO 02/04/18 12:00 (Senokot) 17.2 mg Q12H PRN PO 02/04/18 12:00 (Dulcolax Supp) 10 mg DAILY PRN RECTAL 02/04/18 12:00 (Lactulose Liq) 30 ml DAILY PRN PO 02/04/18 12:00 (Narcan Inj) 0.4 mg UNSCH PRN IV PUSH 02/04/18 12:00 (Norvasc) 5 mg DAILY PO 02/04/18 14:00 02/05/18 09:12 (Lexapro) 10 mg DAILY PO 02/04/18 15:00 02/05/18 09:13 (Prinivil) 20 mg DAILY PO 02/04/18 14:00 02/05/18 09:12 (Hydrodiuril) 12.5 mg DAILY PO 02/04/18 14:00 02/05/18 09:12 (Toradol Inj) 30 mg Q6H IV PUSH 02/04/18 18:00 02/09/18 10:59 02/06/18 05:56 (Morphine Inj) 2 mg Q3H PRN IV PUSH 02/04/18 16:30 (Flomax) 0.4 mg Q12H PO 02/05/18 10:00 02/05/18 21:40 Cefazolin Sodium/ Dextrose 50 ml @ 100 mls/hr ASSOCIATE DATA SCIENTIST IV 02/05/18 15:15 02/08/18 15:14 (Pyridium) 100 mg Q8HR PO 02/05/18 16:30 02/06/18 05:56 Cefazolin Sodium 1000 mg/Sodium Chloride 100 ml @ 200 mls/hr Q8H IV 02/05/18 22:00 02/06/18 05:57 [place] [place] ALL NURSING DEPARTME... UNSCH PRN .XX 02/05/18 17:30 02/06/18 17:29 Assessment and Plan Assessment and Plan Stable s/p Right URS with laser litho and stone extraction with stent insertion D/C home F/U 3-4 weeks for stent removal in office Froylan Ontiveros DO February 06, 2018 08:03
[2018-02-06 08:05] VITALS: BP 104/60; PULSE 80; RESP 18; TEMP 98.2; O2SAT 96
[2018-02-06] MEDS: SODIUM CHLORIDE 0.9% FLUSH 10 ML FLUSH IV FLUSH SCH (09:12)
[2018-02-06] MEDS: TAMSULOSIN HCL 0.4 MG CAP PO SCH (09:13)
[2018-02-06] MEDS: amLODIPine BESYLATE 5 MG TAB PO SCH (09:13)
[2018-02-06] MEDS: DOCUSATE SODIUM 50 MG/SENNA 8.6 MG TAB PO SCH (09:13)
[2018-02-06] MEDS: ESCITALOPRAM OXALATE 10 MG TAB PO SCH (09:13)
[2018-02-06] MEDS ORDERED: NAPR500T2 PO (09:31)
--- NOTE | 2018-02-06 09:32 | HHI.DCPOC ---
Discharge Care Plan Diagnosis: (1) Kidney stone on right side (2) TRACEY (acute kidney injury) Goals to Promote Your Health * To prevent worsening of your condition and complications * To maintain your health at the optimal level Directions to Meet Your Goals Take your medications as prescribed Follow your dietary instruction Follow activity as directed Keep your appointments as scheduled Take your immunizations and boosters as scheduled If your symptoms worsen call your PCP, if no PCP go to Urgent Care Center or Emergency Room Smoking is Dangerous to Your Health. Avoid second hand smoke Call the 24-hour hour crisis hotline for domestic abuse at Franki Camargo MD R2 February 06, 2018 09:32
--- NOTE | 2018-02-06 09:39 | HHI.FPPN ---
Subjective Remarks Overnight had urologic procedure, tolerated well. Good UOP with intermittent dysuria. Flank pain significantly improved. NO fever, CP, SOB. No nausea. Tolerating diet. (Franki aCmargo MD R2) Objective Vitals Vital Signs Date Time Temp Pulse Resp B/P (MAP) Pulse Ox O2 Delivery O2 Flow Rate FiO2 02/06/18 08:05 98.2 80 18 104/60 (75) 96 02/06/18 06:56 15 02/06/18 03:55 97.8 91 16 100/51 (67) 95 02/05/18 23:20 98.7 89 18 117/70 (86) 95 02/05/18 20:10 97.8 86 18 108/62 (77) 95 02/05/18 18:03 97.9 70 19 95/55 (68) 95 02/05/18 17:25 97.8 68 16 100/52 (68) 95 Nasal Cannula 3 02/05/18 17:15 67 16 98/54 (69) 94 Nasal Cannula 3 02/05/18 17:00 66 16 99/55 (70) 93 Nasal Cannula 3 02/05/18 16:45 65 16 108/67 (81) 95 Simple Mask 8 02/05/18 16:35 97.7 74 15 123/67 (85) 92 Simple Mask 8 02/05/18 11:20 98.1 76 18 134/92 (106) 96 I/O 02/05/18 02/05/18 02/05/18 02/06/18 02/06/18 02/06/18 07:00 15:00 23:00 07:00 15:00 23:00 Intake Total 480 ml 1350 ml Output Total 1250 ml Balance 480 ml 1350 ml -1250 ml Intake Oral 480 ml IV Total 50 ml Other 1300 ml Output Urine Total 1250 ml # Voids 3 (Franki Camargo MD R2) Result Diagram: 02/05/18 0645 02/05/18 0645 Imaging Last Impressions Scrotum Ultrasound 02/04/18 0000 Signed Impressions: Service Date/Time: Sunday, February 04, 2018 12:57 - CONCLUSION: Normal examination. Manuel Fernandes MD Objective Remarks GENERAL: This is a well-nourished, well-developed patient, in no apparent distress. CARDIOVASCULAR: Regular rate and rhythm without murmurs, gallops, or rubs. RESPIRATORY: Clear to auscultation. Breath sounds equal bilaterally. No wheezes , rales, or rhonchi. no CVA tenderness. GASTROINTESTINAL: obese abdomen, soft, non-tender. MUSCULOSKELETAL: Extremities without clubbing, cyanosis, or edema. NEUROLOGICAL: Awake and alert. Cranial nerves II through XII intact. Motor and sensory grossly within normal limits. Normal speech. Procedures 02/05/18 - Cystoscopy, right retrograde pyelogram, right ureteroscopy laser lithotripsy, stone extraction with right double-J stent insertion Medications and IVs Current Medications Medications (Trade) Dose Ordered Sig/Stephanie Route Start Time Stop Time Status Last Admin Sodium Chloride 1,000 ml @ 180 mls/hr Q5H34M IV 02/04/18 12:00 02/06/18 05:57 (NS Flush) 2 ml UNSCH PRN IV FLUSH 02/04/18 12:00 02/04/18 17:47 (NS Flush) 2 ml BID IV FLUSH 02/04/18 12:00 (Tylenol) 650 mg Q4H PRN PO 02/04/18 12:00 (Zofran Inj) 4 mg Q6H PRN IVP 02/04/18 12:00 (Tere-Colace) 1 tab BID PO 02/04/18 21:00 02/06/18 09:13 (Milk Of Magnesia Liq) 30 ml Q12H PRN PO 02/04/18 12:00 (Senokot) 17.2 mg Q12H PRN PO 02/04/18 12:00 (Dulcolax Supp) 10 mg DAILY PRN RECTAL 02/04/18 12:00 (Lactulose Liq) 30 ml DAILY PRN PO 02/04/18 12:00 (Narcan Inj) 0.4 mg UNSCH PRN IV PUSH 02/04/18 12:00 (Norvasc) 5 mg DAILY PO 02/04/18 14:00 02/06/18 09:13 (Lexapro) 10 mg DAILY PO 02/04/18 15:00 02/06/18 09:13 (Prinivil) 20 mg DAILY PO 02/04/18 14:00 02/05/18 09:12 (Hydrodiuril) 12.5 mg DAILY PO 02/04/18 14:00 02/05/18 09:12 (Toradol Inj) 30 mg Q6H IV PUSH 02/04/18 18:00 02/09/18 10:59 02/06/18 05:56 (Morphine Inj) 2 mg Q3H PRN IV PUSH 02/04/18 16:30 (Flomax) 0.4 mg Q12H PO 02/05/18 10:00 02/06/18 09:13 Cefazolin Sodium/ Dextrose 50 ml @ 100 mls/hr POLYMERIZATION ENGINEER IV 02/05/18 15:15 02/08/18 15:14 (Pyridium) 100 mg Q8HR PO 02/05/18 16:30 02/06/18 05:56 Cefazolin Sodium 1000 mg/Sodium Chloride 100 ml @ 200 mls/hr Q8H IV 02/05/18 22:00 02/06/18 05:57 ([facility] [place] Nursing Information) ALL NURSING DEPARTME... UNSCH PRN .XX 02/05/18 17:30 02/06/18 17:29 (Franki Camargo MD R2) A/P Assessment and Plan Patient is a 37-year-old male with past medical history of hypertension and kidney stones presenting with: (Franki Camargo MD R2) Attending Attestation Patient seen and examined. Case reviewed and discussed with the resident team. Agree with plan of care as discussed with me and documented in the resident note. (Lanette Richmond MD) Problem List: (1) Kidney stone on right side ICD Codes: N20.0 - Calculus of kidney Status: Resolved Plan: POD 1 from urologic procedure as noted above - stone broken with lithotripsy, stent placed UOP good, pain resolved CT abdomen pelvis on 02/03: 5 mm stone distal right ureter ureter with mild hydronephrosis and hydroureter and right perinephric stranding. 3 nonobstructing left renal stones. Scrotal ultrasound: Normal -Urology consulted, appreciate recs -To f/u in office in 2-3 weeks for repeat cystoscopy -D/C IV fluids -Encourage oral fluids -Aleve / Tylenol PRN at home for pain (2) Hypertension ICD Codes: I10 - Essential (primary) hypertension Status: Chronic Plan: Stable to slightly low today, continue home meds (3) TRACEY (acute kidney injury) ICD Codes: N17.9 - Acute kidney failure, unspecified Status: Resolved Plan: Improved with IV fluid (4) Anxiety ICD Codes: F41.9 - Anxiety disorder, unspecified Status: Chronic Plan: Stable mood Continue with home medication (5) Nutrition, metabolism, and development symptoms ICD Codes: R63.8 - Other symptoms and signs concerning food and fluid intake Plan: Fluids: PO only Electrolytes: Replete as needed, continue to monitor Nutrition: Regular diet DVT prophylaxis: SCDs Dispo: Home today if renal function normal (Franki Camargo MD R2) Franki Camargo MD R2 February 06, 2018 09:38 Lanette Richmond MD February 06, 2018 13:37
[2018-02-06 10:34] LABS: BICARBONATE 28.3 MEQ/L (21.0-32.0); CALCIUM 9.1 MG/DL (8.5-10.1); CREATININE 0.82 MG/DL (0.60-1.30)
--- NOTE | 2018-02-06 15:46 | HHI.DS ---
Discharge Summary Admission Date February 04, 2018 at 11:18 am Discharge Date: February 06, 2018 Admitting Diagnosis Kidney stone (1) Kidney stone on right side Diagnosis: Principal ICD Codes: N20.0 - Calculus of kidney Status: Resolved (2) TRACEY (acute kidney injury) Diagnosis: Principal ICD Codes: N17.9 - Acute kidney failure, unspecified Status: Resolved (3) Hypertension Diagnosis: Secondary ICD Codes: I10 - Essential (primary) hypertension Status: Chronic (4) Anxiety Diagnosis: Secondary ICD Codes: F41.9 - Anxiety disorder, unspecified Status: Chronic Consultants Urology - Dr. Ontiveros Procedures 02/05/18 - Cystoscopy, right retrograde pyelogram, right ureteroscopy laser lithotripsy, stone extraction with right double-J stent insertion Brief History Patient is a 37-year-old male with past medical history of hypertension and kidney stones returning to ED due to worsening right-sided flank pain and malaise associated with kidney stones that was diagnosed yesterday on CT imaging in the ED. Patient reports that he was discharged on Zofran and hydrocodone yesterday and advised to return if the sxs worsen. He reports that today the pain was more severe associated with nausea and blurred to tolerate p.o. intake. Patient rates pain 10 out of 10 and describes as a "tearing" sensation. The pain radiated to his Right groin. This morning he also noticed hematuria with about 5-6 blood clots and scrotal swelling, redness and tenderness. Patient has a history of kidney stones, largest stone has been 6 mm. In the past he has not required any surgical intervention for the kidney and is usually able to pass them. He used to follow with urologist Dr. Blakely for his recurrent kidney stones but has not seen him in a while because due to diet modification the occurrence decreased. pcp: Dr. Pete CBC/BMP: 02/05/18 0645 02/06/18 0916 Significant Findings Laboratory Tests Test 02/04/18 09:30 02/04/18 11:15 02/05/18 06:45 02/06/18 09:16 Eosinophils (%) (Auto) 4.2 % (0.0-4.0) 6.1 % (0.0-4.0) Creatinine 1.32 MG/DL (0.60-1.30) Random Glucose 117 MG/DL (74-106) 112 MG/DL (74-106) Aspartate Amino Transf (AST/SGOT) 44 U/L (15-37) Alanine Aminotransferase (ALT/SGPT) 134 U/L (12-78) 98 U/L (12-78) Estimat Glomerular Filtration Rate 61 ML/MIN (>89) Urine Occult Blood MOD (NEG) Urine Mucus FEW /lpf (OCC) Red Blood Count 4.47 MIL/MM3 (4.50-5.90) Eosinophils # (Auto) 0.5 TH/MM3 (0-0.4) Calcium Level 8.4 MG/DL (8.5-10.1) Imaging Last Impressions Scrotum Ultrasound 02/04/18 0000 Signed Impressions: Service Date/Time: Sunday, February 04, 2018 12:57 - CONCLUSION: Normal examination. Manuel Fernandes MD PE at Discharge GENERAL: This is a well-nourished, well-developed patient, in no apparent distress. CARDIOVASCULAR: Regular rate and rhythm without murmurs, gallops, or rubs. RESPIRATORY: Clear to auscultation. Breath sounds equal bilaterally. No wheezes , rales, or rhonchi. no CVA tenderness. GASTROINTESTINAL: obese abdomen, soft, non-tender. MUSCULOSKELETAL: Extremities without clubbing, cyanosis, or edema. NEUROLOGICAL: Awake and alert. Cranial nerves II through XII intact. Motor and sensory grossly within normal limits. Normal speech. Hospital Course 37 yo with recurrent kidney stones admitted with flank pain and TRACEY found to have kidney stone. Did not pass spontaneously with Flomax and IV fluids, so urology performed procedure as noted above. Tolerated procedure well, cleared for discharge per urology with follow up to be arranged in a few weeks. Pt Condition on Discharge: Good Discharge Disposition: Discharge Home Discharge Instructions DIET: Follow Instructions for: As Tolerated, No Restrictions, Low Oxalate Diet Activities you can perform: Regular-No Restrictions Follow up Referrals: PCP Follow-up - 1 Month Urology - 2 Weeks with Froylan Ontiveros DO New Medications: Naproxen (Naproxen) 500 Mg Tab 500 MG PO BID PRN for PAIN, #60 TAB 0 Refills Continued Medications: Amlodipine (Amlodipine) 5 Mg Tab 5 MG PO DAILY for Blood Pressure Management, #30 TAB 0 Refills Escitalopram (Lexapro) 10 Mg Tab 10 MG PO DAILY, #30 TAB 0 Refills Lisinopril-Hctz (Lisinopril-Hctz) 20-12.5 Mg Tab 1 TAB PO DAILY for Blood Pressure Management, #30 TAB 0 Refills Metaxalone (Metaxalone) 400 Mg Tab 100 MG PO TID for Muscle Spasm, TAB 0 Refills Ondansetron Odt (Zofran Odt) 4 Mg Tab 4 MG SL Q6HR PRN for Nausea/Vomiting, #15 TAB 0 Refills Discontinued Medications: Hydrocodone-Acetaminophen (Hydrocodone-Acetaminophen) 7.5 Mg-325 Mg Tab 1 TAB PO Q6H PRN for PAIN, #12 TAB 0 Refills Franki Camargo MD R2 February 06, 2018 3:46 pm
== END 2018-02-06 11:48 | disposition home or self-care (01) ==
LOC: NEPD 08:53 → NEDA 11:18 → NEPHCDU 13:57
PROVIDERS: ADMIT Family Medicine; ATTEND Family Medicine
DX: N13.2 Hydronephrosis with renal and ureteral calculous obstruction (principal); R11.2 Nausea with vomiting, unspecified; F41.9 Anxiety disorder, unspecified; F32.9 Major depressive disorder, single episode, unspecified; I10 Essential (primary) hypertension; Z79.899 Other long term (current) drug therapy; R79.89 Other specified abnormal findings of blood chemistry; N50.89 Other specified disorders of the male genital organs; Z87.891 Personal history of nicotine dependence; N17.9 Acute kidney failure, unspecified
CPT/HCPCS: 00918; 52356; 74420; 76870; 80048; 80053; 81001; 82365; 82370; 85025; 88300; 93975; 96361; 96365; 96375; 96376; 99285; C1769; C2617; G0378; J0690; J1100; J1885; J1940; J2250; J2270; J2370; J2405; J2710; J3010; J7030; J7120